=== PATIENT | male | born 1995 | race Two or more races ===

== ENCOUNTER 2022-08-09 16:02 | Emergency (ER) | payer BC, OTHER ==
[~2022-08-09] VITALS: Ht 167.6 cm; Wt 105.0 kg
[2022-08-09 16:32] VITALS: BP 124/67
[2022-08-09 17:02] LABS: Urine Bacteria FEW /hpf (None Seen); Urine Blood 3+ /uL (Negative); Urine Specific Gravity 1.016 (1.001-1.035); Urine WBC 33 /hpf (0 - 3)
[2022-08-09] MEDS ORDERED: CIPR-173 PO (17:36)
== END 2022-08-09 17:44 | disposition home or self-care (01) ==
LOC: ER 16:02
DX: N39.0 Urinary tract infection, site not specified (principal)
CPT/HCPCS: 81001

== ENCOUNTER 2025-03-30 01:41 | Emergency (ER) | payer BC, MEDICAID ==
[~2025-03-30] VITALS: Ht 167.6 cm; Wt 115.3 kg
[~2025-03-30 01:41] MED LIST: CIPR-173 PO
--- NOTE | 2025-03-30 02:08 | ED.PDOC ---
General HPI Comments 29 year old male with a Hx of Kidney Stones presents to the ED for the c/c of Right Flank pain. Pt states that his pain started at 6pm this afternoon and stated it has progressively worsened to a 12/10 pain with no alleviating factors at this time. Pt states that his pain is similar to a Kidney Stone he had in the past. Tenderness upon palpitation is noted. No other associated symptoms, modifiers, recent injuries or sick contacts present at this time. Chief Complaint: Flank Pain Time Seen by MD: 02:02 Primary Care Provider: DWAINE Reviewed notes: Nurses Notes, Medications, Allergies Allergies: Coded Allergies: NO KNOWN ALLERGIES (Unverified , 08/09/22) Home Meds Active Scripts Acetaminophen (Acetaminophen Er) 650 Mg Tab, 650 MG PO TIDPRN PRN for 5 Days, #15 TAB Prov:TESSA BELTRAN MD 03/30/25 Ketorolac Tromethamine (Ketorolac Tromethamine) 10 Mg Tab, 1 TAB PO TID, #15 TAB Prov:TESSA BELTRAN MD 03/30/25 Tramadol HCl (Tramadol HCl) 50 Mg Tab, 50 MG PO TIDPRN PRN for 3 Days, #9 TAB Prov:TESSA BELTRAN MD 03/30/25 Tamsulosin Hcl (Flomax) 0.4 Mg Cap, 1 CAP PO DAILY for 7 Days, #30 CAP 11 Refills Prov:TESSA BELTRAN MD 03/30/25 Ciprofloxacin Hcl (Cipro) 500 Mg Tab, 500 MG PO BID for 10 Days, #20 TAB Prov:GAVIOTA BELL MD 08/09/22 Information Source: Patient Mode of Arrival: Ambulatory Severity: Moderate Inability to void: None Timing: Hours Duration: Since onset, Hours Has not urinated for: Hours Prehospital treatment: None Onset: Spontaneous Symptoms: None History of: Kidney stone Location: (R) Flank Penile discharge: None Modifying factors: None associated signs and symptoms: Abdominal Pain Vital Signs Vital Signs Date Time Temp Pulse Resp B/P (MAP) Pulse Ox O2 Delivery O2 Flow Rate FiO2 03/30/25 05:51 80 14 97 Room Air* 0 21 03/30/25 05:50 98.0 106/73 (84) 98.0 Physical Exam General: Awake, alert and oriented. moderate distress. Skin: Skin in warm, dry and intact. Appropriate color for ethnicity. HEENT: The head is normocephalic and atraumatic. Conjunctivae are clear without exudates or hemorrhage. Sclera is non-icteric. EOM are intact. No signs of nystagmus. Eyelids are normal in appearance without swelling or lesions. Oral mucosa is pink and moist Neck: The neck is supple with normal range of motion. No JVD. Cardiac: Heart rate and rhythm are normal. No murmurs, gallops, or rubs are auscultated. Respiratory: No signs of respiratory distress. Lung sounds are clear in all lobes bilaterally without rales, rhonchi, or wheezes. Abdominal: Tenderness upon palpitation to the Right Flank. Bowel sounds are present and normoactive in all four quadrants. Extremities: Upper and lower extremities are atraumatic in appearance without deformity or edema. Neurological: The patient is awake, alert and oriented to person, place, and time with normal speech. Speech is clear. There is no facial asymmetry. Psychiatric: Appropriate mood and affect. Good judgement and insight. Review of Systems: REVIEW OF SYSTEMS: No fever, no chills, or fatigue HEENT: No sore throat, no earache, no congestion, no neck pain. Cardiac: No chest pain. No palpitations. Lungs: No shortness of breath, no cough. GI: Positive nausea, vomiting and diarrhea. Positive right flank pain. : No dysuria, frequency, or urgency. No hematuria. Musculoskeletal: No joint pain , no joint swelling, no extremity edema. Right sided Flank Pain Skin: No rash, no itching. Neuro: No headache, no dizziness, no weakness Past Medical History PAST MEDICAL HISTORY: Kidney Stones Surgical History: Denies all surgeries Family History Family History: Family hx of DM, Family hx of Kidney yaron, Family hx of liver yaron Social History Smoker: Other Alcohol: Denies ETOH Use Drugs: Marijuana Lives In: Other Was a procedure done? Was a procedure done?: No Differential Diagnosis Kidney stone (Female): Other Kidney stone (Male): AAA, Aortic dissection, Bowel obstruction, Cholelithiasis, Pancreatitis, Pyelonephritis, Renal failure, Strain, Urolithiasis, Other Urinary Problem (Male): Urolithiasis, UTI X-Ray, Labs, Meds, VS Vital Signs Date Time Temp Pulse Resp B/P (MAP) Pulse Ox O2 Delivery O2 Flow Rate FiO2 03/30/25 05:51 80 14 97 Room Air* 0 21 03/30/25 05:50 98.0 77 14 106/73 (84) 98 98.0 03/30/25 05:50 80 14 106/73 (84) 97 03/30/25 05:46 77 14 106/73 03/30/25 05:05 80 20 140/82 03/30/25 04:51 97.8 80 21 140/82 (101) 98 97.8 03/30/25 04:51 80 21 98 Room Air 03/30/25 01:50 98.7 89 22 155/92 (113) 95 98.7 Lab Test 03/30/25 02:28 03/30/25 02:00 Range/Units White Blood Count 17.0 H 4.4-10.8 10^3/uL Red Blood Count 5.09 4.5-5.90 10^6/uL Hemoglobin 14.7 13.5-17.5 g/dL Hematocrit 43.4 41.0-53.0 % Mean Corpuscular Volume 85.2 80.0-100.0 fL Mean Corpuscular Hemoglobin 29.0 28.0-32.0 pg Mean Corpuscular Hemoglobin Concent 34.0 32.0-36.0 g/dL Red Cell Distribution Width 13.3 11.8-14.3 % Platelet Count 342 140-450 10^3/uL Mean Platelet Volume 8.2 6.9-10.8 fL Neutrophils (%) (Auto) 90.8 H 37.0-80.0 % Lymphocytes (%) (Auto) 6.3 L 10.0-50.0 % Monocytes (%) (Auto) 2.4 0.0-12.0 % Eosinophils (%) (Auto) 0.0 0.0-7.0 % Basophils (%) (Auto) 0.5 0.0-2.0 % Neutrophils # (Auto) 15.4 H 1.6-8.6 10 ^3/uL Lymphocytes # (Auto) 1.1 0.4-5.4 10 ^3/uL Monocytes # (Auto) 0.4 0-1.3 10 ^3/uL Eosinophils # (Auto) 0 0-0.8 10 ^3/uL Basophils # (Auto) 0.1 0-0.2 10 ^3/uL Nucleated Red Blood Cells 0.0 % Sodium Level 141 136-145 mmol/L Potassium Level 3.9 3.5-5.1 mmol/L Chloride Level 106 98-107 mmol/L Carbon Dioxide Level 22 20-31 mmol/L Anion Gap 13 5-15 Blood Urea Nitrogen 12 9-23 mg/dL Creatinine 1.30 0.700-1.30 mg/dL Glomerular Filtration Rate Calc 77 >90 mL/min BUN/Creatinine Ratio 9.2 L 10.0-20.0 Serum Glucose 171 H 74-106 mg/dL Calcium Level 9.7 8.7-10.4 mg/dL Urine Color Yellow Yellow Urine Clarity Clear Clear Urine pH 5.5 5.0-9.0 Urine Specific Anna 1.041 H 1.001-1.035 Urine Protein 1+ H Negative Urine Ketones 1+ H Negative Urine Blood 3+ H Negative /uL Urine Nitrite Negative Negative Urine Bilirubin Negative Negative Urine Urobilinogen Normal Negative mg/dL Urine Leukocyte Esterase Negative Negative /uL Urine RBC 144 0 - 3 /hpf Urine Microscopic WBC 3 0-3 /HPF Urine Squamous Epithelial Cells Few <5 /hpf Urine Calcium Oxalate Crystals Few None Seen Urine Bacteria None seen None Seen /hpf Urine Mucus Few None Seen Urine Glucose Normal Normal mg/dL Current Medications Medications (Trade) Dose Ordered Sig/Basil Route Start Time Stop Time Status Last Admin Ondansetron HCl (Zofran) 4 mg ONCE ONCE IV 03/30/25 02:15 03/30/25 02:16 DC 03/30/25 05:04 Sodium Chloride 1,000 ml @ 1,000 mls/hr Q1H ONCE IV 03/30/25 02:15 03/30/25 03:14 DC 03/30/25 05:03 Morphine Sulfate 4 mg ONCE ONCE IV 03/30/25 05:00 03/30/25 05:01 DC 03/30/25 05:05 PATIENT: JAVIER ALLISON ACCT: [id number] UNIT: [id number] : 1995 LOC: ER ROOM / BED: / AGE / SEX: 29 / M ADM STATUS: REG ER SERVICE 0201 ORDERING PHYSICIAN: TESSA BELTRAN MD PROCEDURE(s): ABPL - CT AB PEL WO CON-NO ORAL OR IV REASON: Right flank pain, history kidney stones ORDER NUMBER(s): [id number], ACCESSION NUMBER(s): [id number] Exam: CT CT AB PEL WO CON-NO ORAL OR IV History: Right flank pain, history kidney stones Comparison Study: None Technique: Multidetector spiral CT of the abdomen was performed from lung bases to pubic symphysis. Imaging was performed without IV contrast. Axial, coronal and sagittal multiplanar reformats were obtained from the axial data set by the technologist. Radiation Dose : 1. Abdomen/Pelvis: CTDIvol 26.71 mGy, DLP 1522.46 mGy*cm. Findings: Evaluation of solid organs is limited due to lack of intravenous contrast use. Lung Bases: No acute or significant lung base finding. Normal heart size. No pleural or pericardial effusion. Liver: The liver is enlarged, measuring 22.0 cm in craniocaudal dimension. No focal lesions. Gallbladder and Biliary Tree: Unremarkable Spleen: Unremarkable Pancreas: The pancreas is grossly normal in appearance. Adrenal Glands: Unremarkable Kidneys: Moderate right hydronephrosis secondary to a partially obstructing proximal ureteral calculus measuring 0.4 cm. No evidence of left hydronephrosis or nephrolithiasis. Bladder: Grossly unremarkable for degree of distention. Bowel: The stomach is grossly normal in appearance. Small bowel and colon are normal in caliber and distribution. The appendix is normal. Ascites: Absent Lymphadenopathy: No mesenteric, retroperitoneal or periportal lymphadenopathy. Abdominal Wall and Mesentery: Unremarkable. Vasculature: The visualized abdominal aorta is normal in size and caliber. Evaluation of abdominal and pelvic vessels is limited due to lack of intravenous contrast. Pelvic Organs: Unremarkable Musculoskeletal: No aggressive focal bony lesions, acute fractures or dislocation. IMPRESSION: 1. Moderate right hydronephrosis secondary to a partially obstructing ureteral calculus. 2. Hepatomegaly. Radiation optimization: All CT scans at this facility use at least one of these dose optimization techniques: automated exposure control mA and/or kV adjustment per patient size (includes targeted exams where dose is matched to clinical indication) or iterative reconstruction. Time of 1ST Reevaluation: 02:32 Reevaluation 1ST: Unchanged Patient Education/Counseling: Need For Follow Up Family Education/Counseling: No Family Present Departure 1 Departure Time of Disposition: 03:32 Impression: Primary Impression: Kidney stone Disposition: 01 HOME / SELF CARE / HOMELESS Condition: Stable Additional Instructions: ED DISCHARGE INSTRUCTIONS Instructions: Please read all instructions provided in this packet carefully. Although you have been discharged from the Emergency Department, this does not mean that you have a "clean bill of health". No definitive diagnosis for your symptoms has been made today. It is possible that you are in the process of developing a serious illness. This is why you must return to the ED without fail if any new or worsening symptoms (especially if your symptoms include chest pain, trouble breathing, abdominal pain, fever, headache, confusion, trouble seeing, or trouble walking) It is also very important that you see a primary care doctor within the next 3-5 days to follow up. If you are unable to get an appointment, return to the ED for re-evaluation. Kidney Stone: Care Instructions Table of Contents Overview How can you care for yourself at home? When should you call for help? Credits Overview A kidney stone in the ureter. Kidney stones are formed when salts, minerals, and other substances normally found in the urine clump together. They can be as small as grains of sand or, rarely, as large as golf balls. While the stone is traveling through the ureter, which is the tube that carries urine from the kidney to the bladder, you will probably feel pain. The pain may be mild or very severe. You may also have some blood in your urine. As soon as the stone reaches the bladder, any intense pain should go away. If a stone is too large to pass on its own, you may need a medical procedure to help you pass the stone. The doctor has checked you carefully, but problems can develop later. If you notice any problems or new symptoms, get medical treatment right away . Follow-up care is a leyva part of your treatment and safety. Be sure to make and go to all appointments, and call your doctor if you are having problems. It's also a good idea to know your test results and keep a list of the medicines you take. How can you care for yourself at home? Drink plenty of fluids. If you have kidney, heart, or liver disease and have to limit fluids, talk with your doctor before you increase the amount of fluids you drink. Be safe with medicines. Read and follow all instructions on the label. If you are not taking a prescription pain medicine, ask your doctor if you can take an [id number] medicine. Nonsteroidal anti-inflammatory drugs (NSAIDs), such as ibuprofen (Advil, Motrin), may help with the pain. If the doctor gave you a prescription medicine for pain, take it as prescribed. Store your prescription pain medicines where no one else can get to them. When you are done using them, dispose of them quickly and safely. Your local pharmacy or hospital may have a drop-off site. Your doctor may ask you to strain your urine so that you can collect your kidney stone when it passes. You can use a kitchen strainer or a tea strainer to catch the stone. Store it in a plastic bag until you see your doctor again. Preventing future kidney stones Some changes in your diet may help prevent kidney stones. Depending on the cause of your stones, your doctor may recommend that you: Drink plenty of fluids. If you have kidney, heart, or liver disease and have to limit fluids, talk with your doctor before you increase the amount of fluids you drink. Try to drink mostly water. Limit grapefruit juice and sugar-sweetened beverages like soda. Do not take more than the recommended daily dose of vitamins C and D. Avoid antacids such as Maalox, Mylanta, or Tums. Limit the amount of salt (sodium) in your diet. Eat a variety of healthy foods. Include plenty of fruits and vegetables. You may need to limit animal protein for certain types of kidney stones. If you're worried about getting enough protein, try replacing animal protein sources with plant-based sources like dried peas and lentils. Limit foods that are high in a substance called oxalate, which can cause kidney stones. These foods include dark green vegetables, rhubarb, chocolate, wheat bran, nuts, cranberries, and beans. When should you call for help? Contact your doctor now or seek immediate medical care if: You cannot keep down fluids. Your pain gets worse. You have a fever or chills. You have new or worse pain in your back just below your rib cage (the flank area). You have new or more blood in your urine. You have new or worse pain or burning when you urinate. You have new or worse trouble urinating. Watch closely for changes in your health, and be sure to contact your doctor if: You do not get better as expected. Credits for Kidney Stone: Care Instructions Current as of: February 18, 2024 Author: [employer] Staff Clinical Review Board All [employer] education is reviewed by a team that includes physicians, nurses, advanced practitioners, registered dieticians, and other healthcare professionals. e-Prescriptions Acetaminophen (Acetaminophen Er) 650 Mg Tab 650 MG PO TIDPRN PRN for 5 Days, #15 TAB Prov: TESSA BELTRAN MD 03/30/25 Ketorolac Tromethamine (Ketorolac Tromethamine) 10 Mg Tab 1 TAB PO TID, #15 TAB Prov: TESSA BELTRAN MD 03/30/25 Tramadol HCl (Tramadol HCl) 50 Mg Tab 50 MG PO TIDPRN PRN for 3 Days, #9 TAB Prov: TESSA BELTRAN MD 03/30/25 Tamsulosin Hcl (Flomax) 0.4 Mg Cap 1 CAP PO DAILY for 7 Days, #30 CAP 11 Refills Prov: TESSA BELTRAN MD 03/30/25 Comments Patient well-appearing, nontoxic. Advised prompt follow-up with PCP, return to the ED with any new, worsening or concerning symptoms. - I reviewed the following notes from the pt's past medical encounters: N/A The following tests were ordered, and results were reviewed by me: (See diagnostic results section) The following test were independently interpreted by me: N/A Additional information was gathered from interviewing the following independent historians: N/A I reviewed and agreed with the following test results read by other providers: N/A I discussed treatments and results with patient Decision regarding hospitalization or escalation of hospital level of care: Risks and benefits of admission for further treatment of patient's condition was considered however due to patient's stable condition patient will be discharged to follow up closely or return to care for worsening of condition or inability to follow up. Critical Care Note Critical Care Time?: No Stability Stability form required: No Heart Score Heart Score: Heart Score Response (Comments) Value History N/A 0 EKG N/A 0 Age N/A 0 Risk Factors N/A 0 Troponin N/A 0 Total 0 I personally scribed for TESSA BELTRAN MD ([email or web address]) on 03/30/25 at 02:07. Electronically submitted by Gaetano Olson ([email or web address]). I personally scribed for TESSA BELTRAN MD ([email or web address]) on 03/30/25 at 02:41. Electronically submitted by aGetano Olson ([email or web address]). TESSA BELTRAN MD Mar 30, 2025 02:07
[2025-03-30 02:28] LABS: Urine Bacteria None Seen /hpf (None Seen)
[2025-03-30 02:38] LABS: Urine Blood 3+ /uL (Negative); Urine Clarity Clear (Clear); Urine Color Yellow (Yellow); Urine Mucus FEW (None Seen); Urine Protein, UAD 1+ (Negative); Urine Specific Gravity 1.041 (1.001-1.035); Urine Squamous Epithelial Cell FEW /hpf (<5); Urine Urobilinogen Normal (Negative); Urine WBC 3 /HPF (0-3); Urine pH 5.5 (5.0-9.0)
--- NOTE | 2025-03-30 02:38 | DVH ---
Exam: CT CT AB PEL WO CON-NO ORAL OR IV History: Right flank pain, history kidney stones Comparison Study: None Technique: Multidetector spiral CT of the abdomen was performed from lung bases to pubic symphysis. I maging was performed without IV contrast. Axial, coronal and sagittal multiplanar reformats were obta ined from the axial data set by the technologist. Radiation Dose : 1. Abdomen/Pelvis: CTDIvol 26.71 mGy, DLP 1522.46 mGy*cm. Findings: Evaluation of solid organs is limited due to lack of intravenous contrast use. Lung Bases: No acute or significant lung base finding. Normal heart size. No pleural or pericardial effusion. Liver: The liver is enlarged, measuring 22.0 cm in craniocaudal dimension. No focal lesions. Gallbladder and Biliary Tree: Unremarkable Spleen: Unremarkable Pancreas: The pancreas is grossly normal in appearance. Adrenal Glands: Unremarkable Kidneys: Moderate right hydronephrosis secondary to a partially obstructing proximal ureteral calculu s measuring 0.4 cm. No evidence of left hydronephrosis or nephrolithiasis. Bladder: Grossly unremarkable for degree of distention. Bowel: The stomach is grossly normal in appearance. Small bowel and colon are normal in caliber and d istribution. The appendix is normal. Ascites: Absent Lymphadenopathy: No mesenteric, retroperitoneal or periportal lymphadenopathy. Abdominal Wall and Mesentery: Unremarkable. Vasculature: The visualized abdominal aorta is normal in size and caliber. Evaluation of abdominal a nd pelvic vessels is limited due to lack of intravenous contrast. Pelvic Organs: Unremarkable Musculoskeletal: No aggressive focal bony lesions, acute fractures or dislocation. IMPRESSION: 1. Moderate right hydronephrosis secondary to a partially obstructing ureteral calculus. 2. Hepatomegaly. Radiation optimization: All CT scans at this facility use at least one of these dose optimization niko hniques: automated exposure control mA and/or kV adjustment per patient size (includes targeted exam s where dose is matched to clinical indication) or iterative reconstruction.
[2025-03-30 02:58] LABS: Basophils # (auto) 0.1 10 ^3/uL (0-0.2); Basophils % (auto) 0.5 % (0.0-2.0); Eosinophils # (auto) 0 10 ^3/uL (0-0.8); Hematocrit 43.4 % (41.0-53.0); Hemoglobin 14.7 g/dL (13.5-17.5); Lymphocytes # (auto) 1.1 10 ^3/uL (0.4-5.4); Lymphocytes % (auto) 6.3 % (10.0-50.0); Mean Corpuscular Volume 85.2 fL (80.0-100.0); Monocytes # (auto) 0.4 10 ^3/uL (0-1.3); Monocytes % (auto) 2.4 % (0.0-12.0); Neutrophils # (auto) 15.4 10 ^3/uL (1.6-8.6); Neutrophils % (auto) 90.8 % (37.0-80.0); Platelet Count (auto) 342 10^3/uL (140-450); Red Blood Cells 5.09 10^6/uL (4.5-5.90); Red Cell Distribution Width 13.3 % (11.8-14.3)
[2025-03-30 03:08] LABS: Chloride 106 mmol/L (98-107); Potassium 3.9 mmol/L (3.5-5.1); Sodium 141 mmol/L (136-145)
[2025-03-30 03:09] LABS: Anion Gap 13 (5-15); Carbon Dioxide 22 mmol/L (20-31)
[2025-03-30 03:10] LABS: Calcium 9.7 mg/dL (8.7-10.4)
[2025-03-30 03:15] LABS: BUN/Creatinine Ratio 9.2 (10.0-20.0); Blood Urea Nitrogen 12 mg/dL (9-23)
[2025-03-30 03:16] LABS: Glucose 171 mg/dL (74-106)
[2025-03-30] MEDS ORDERED: TRAM-626 PO (03:35)
[2025-03-30] MEDS ORDERED: TAMS-35 PO (03:35)
[2025-03-30] MEDS ORDERED: KETO10TA PO (03:35)
[2025-03-30] MEDS ORDERED: ACET650T12 PO (03:35)
[2025-03-30] MEDS: SODIUM CHLORIDE 0.9% 1,000 ML IV ONE (05:03)
[2025-03-30] MEDS: ONDANSETRON HCL 4 MG/2 ML VIAL IV ONE (05:04)
[2025-03-30] MEDS: MORPHINE SULFATE 4 MG/ML SYR/VIAL ONE (05:04)
[2025-03-30] MEDS: MORPHINE SULFATE 4 MG/ML SYR/VIAL IV ONE (05:05)
[2025-03-30] MEDS: MORPHINE SULFATE INJ 2 MG/ml SYRG IV ONE (05:19)
[2025-03-30 05:50] VITALS: BP 106/73; TEMP 98
[2025-03-30 05:51] VITALS: PULSE 80; RESP 14; O2SAT 97
== END 2025-03-30 05:52 | disposition home or self-care (01) ==
LOC: ER 01:41
DX: N13.2 Hydronephrosis with renal and ureteral calculous obstruction (principal); F12.90 Cannabis use, unspecified, uncomplicated; F17.200 Nicotine dependence, unspecified, uncomplicated; Z79.899 Other long term (current) drug therapy
CPT/HCPCS: 36415; 74176; 80048; 81001; 85025; 96361; 96374; 96375; 99285; J2270; J2405; J7030